=== PATIENT | female | born 1970 | race American Indian/Alaskan Native ===

== ENCOUNTER 2018-05-28 07:09 | Outpatient (CLI) | payer OTHER ==
--- NOTE | 2018-05-28 14:34 | Mammography Report ---
BILATERAL DIGITAL SCREENING MAMMOGRAM with CAD: 05/28/18 07:09:00 CLINICAL: Routine screening. COMPARISON:01/24/14 FINDINGS: The breasts are heterogeneously dense, which may obscure small masses. No mass, architectural distortion or suspicious calcifications. IMPRESSION: No mammographic evidence of malignancy. BI-RADS CATEGORY: 1 - - Negative RECOMMENDATION: Routine mammographic screening in one year. COMMENT: Patient follow-up letters are generated by our [employer] application.
== END 2018-05-28 07:10 | disposition home or self-care (01) ==
LOC: MAMMO 07:09
PROVIDERS: ATTEND Family Medicine
DX: Z12.31 Encounter for screening mammogram for malignant neoplasm of breast (principal)
CPT/HCPCS: 77067

== ENCOUNTER 2018-12-10 05:40 | Day surgery (SDC) | payer OTHER ==
--- NOTE | 2018-12-07 13:51 | History and Physical Report ---
History of Present Illness Date of examination: 12/07/18 Date of admission: 12/10/18 Chief complaint: irregular bleeding History of present illness: Visit Type: Pre-Op CC: no complaints. History of Present Illness: pt presents for pre op visit: Novasure....bakari Pt has h/o DUB and is s/p SIS in 2016. She c/o having two periods per month. I d/w pt that it is likely due to bein perimenopausal. Pt is s/p SIS and embx both of which with negative findings. I have d/w treatment options for the perimenopausal bleeding and she desires the Novasure ablation. All risk/benefits/alternatives were d/w pt and questions were addressed and answered. Conents have been signed and placed on the chart. Vital Signs: Patient Profile: 48 Years Old Female Height: 65 inches (165.10 cm) Weight: 232 pounds BMI: 38.60 BP sittin / 74 (left arm) Current Method of Contraception: BTL Date of Last Pap Smear: 10/29/2018 Past History : 3 Term Births: 3 Living Children: 3 Para: 3 MANAGER SAFE History Uterine Surgery (not C/S): negative Operations: Tubal Ligation Anesthesia Complications: negative Abnormal PAP: positive; cryo Uterine Anomaly: negative ANANDA Exposure: negative Infertility: negative Infection History HIV Risk Eval: no Personal hx. of genital herpes: no Hx of STD: None Active Medications (reviewed today): IBUPROFEN 800 MG ORAL TABLET (IBUPROFEN) 1 po q6 hr prn pain IBUPROFEN 800 MG ORAL TABLET (IBUPROFEN) 1 po q6 hr prn pain Current Allergies (reviewed today): No known allergies Past Medical History: Reviewed history from 12/17/2012 and no changes required: Negative Past Medical History pcp--dr rhianna wooten Past Surgical History: Reviewed history from 11/26/2011 and no changes required: Tubal Ligation [-[facility]] Risk Factors: Smoked Tobacco Use: Never smoker Smokeless Tobacco Use: Never Drug use: no HIV high-risk behavior: no Alcohol use: yes Exercise: yes Seatbelt use: 100 % PAP Smear History: Date of Last PAP Smear: 10/29/2018 [[facility]] [Labs In-House] Physical Exam Appearance: well developed, well nourished, no acute distress Other Exams Lungs: no rales, rhonchi, or wheezes Heart: S1, S2, no murmur, rub, or gallop Extremities: normal alignment, no joint enlargement, crepitus, masses or tenderness; normal tone and strength Genitourinary Exam Comments: deferred until EUA Past History Past Medical History: other (see hpi) Past Surgical History: other (see hpi) MANAGER SAFE History: other (see hpi) Family/Genetic History: other (see hpi) Medications and Allergies Allergies Allergy/AdvReac Type Severity Reaction Status Date / Time No Known Allergies Allergy Unverified 01/24/14 08:03 Review of Systems All systems: negative - Physical Exam Cardiovascular: Normal S1, Normal S2 Lungs: Positive: Clear to auscultation, Normal air movement Abdomen: Positive: normal appearance, soft. Negative: distention, tenderness, guarding Genitourinary (Female): Positive: other (deferred until EUA) Deep Tendon Reflex Grade: Normal +2 Results All other labs normal. Assessment and Plan - Patient Problems (1) Metrorrhagia Status: Acute Plan to address problem: -admit for Novasure ablation -all risk, benefits and alternatives were d/w pt and questions were addressed and answered
[~2018-12-10 05:40] MED LIST: ANCEF/STERILE WATER 2 GM/20 ML 2 GM/20 ML SYRINGE IV NR; LACTATED RINGERS 1,000 ML IV SCH
[2018-12-10] MEDS ORDERED: VERSED IV NR (06:00)
[2018-12-10] MEDS ORDERED: NACL BACTERIOSTATIC INFILTRATI ONE (06:24)
[2018-12-10] MEDS ORDERED: DIPRIVAN 10 MG/ML IV ONE (07:15)
[2018-12-10] MEDS ORDERED: DILAUDID ONE ×2 (07:15→08:42)
[2018-12-10] MEDS ORDERED: NACL 0.9% IR ONE (07:15)
[2018-12-10] MEDS ORDERED: XYLOCAINE MPF 2% ONE (07:16)
--- NOTE | 2018-12-10 07:41 | Anesthesia Consultation ---
Anesthesia Consult and Med Hx Date of service: 12/10/18 - Airway Anesthetic Teeth Evaluation: Good ROM Head & Neck: Adequate Mental/Hyoid Distance: Adequate Mallampati Class: Class I Intubation Access Assessment: Probably Good - Pulmonary Exam CTA: Yes - Cardiac Exam Cardiac Exam: RRR - Pre-Operative Health Status ASA Pre-Surgery Classification: ASA1 Proposed Anesthetic Plan: General - Pulmonary Hx Smoking: No Hx Respiratory Symptoms: No Hx Sleep Apnea: No - Cardiovascular System Hx Hypertension: No Hx Heart Attack/AMI: No Hx Heart Murmur: Yes ("innocent") - Central Nervous System Hx Neuromuscular Disorder: No Hx Psychiatric Problems: No - Gastrointestinal Hx Gastroesophageal Reflux Disease: No - Endocrine Hx Renal Disease: No Hx Cirrhosis: No Hx Liver Disease: No - Hematic Hx Anemia: Yes - Other Systems Hx Alcohol Use: Yes (Occas) Hx Cancer: No Hx Obesity: Yes - Additional Comments Anesthesia Medical History Comments: No GAC, No FHAC
--- NOTE | 2018-12-10 07:42 | Anesthesia Day of Surgery ---
Anesthesia Day of Surgery - Day of Surgery Patient Examined: Yes Patient H&P Reviewed: Yes Patient is NPO: Yes Beta Blockers: No (n/a) Cardiac Clearance: No (n/a) Pulmonary Clearance: No (n/a)
[2018-12-10] MEDS ORDERED: TORADOL ONE (08:07)
[2018-12-10] MEDS ORDERED: ZOFRAN ONE (08:07)
[2018-12-10 08:12] LABS: Hematocrit 32.7 % (30.3-42.9); Hemoglobin 10.1 gm/dl (10.1-14.3); Mean Corpuscular HGB Conc 31 % (30-34); Platelet Count 241 K/mm3 (140-440); Red Cell Distribution Width 17.4 % (13.2-15.2)
[2018-12-10 08:13] LABS: Mean Corpuscular Hemoglobin 21 pg (28-32); Mean Corpuscular Volume 67 fl (79-97)
--- NOTE | 2018-12-10 08:17 | Operative Report ---
Operative Report Operative Report: Date of procedure: 12/10/2018 Pre-operative diagnosis: Menorrhagia Metrarrhagia Post-operative diagnosis: Same Procedure name(s): 1. Hysteroscopy 2. NovaSure ablation Surgeon: Blossom Caban M.D. Server Developer: [email or web address] Anesthesia: Mac EBL: Minimal Urine output: 200 mL of clear urine out at the beginning of the procedure via straight catheterization Fluids: 350 mL Findings: Normal cervix Thickening of the tissue inside the endometrium Indications: Patient presents with long history of heavy menstrual periods and bleeding between menstrual periods often having 2 periods in that same month. Patient underwent endometrial biopsy that was negative for any malignancy or hyperplasia. All risks benefits and alternatives were discussed with the patient. Patient desired endometrial ablation. Consents were signed and placed on the chart. Procedure: Patient was taken to the operating room where she was placed under general endotracheal anesthesia she was then prepped and draped in normal sterile fashion in dorsal lithotomy position with legs in Alli stirrups. Straight catheterization of the bladder was performed at this time. Sterile speculum was placed inside of the vagina to visualize the entire cervix. The anterior lip of the cervix was grasped with a single-tooth tenaculum and the uterus was sounded to 8cm. The cervix was then dilated in order to allow passage of the hysteroscope. Hysteroscopy yielded the above-stated findings. The cervical length was noted to be 4 cm. The uterine cavity length was calculated to be 4 cm. The cervix was then dilated more to allow passage of the NovaSure device. With placement of the NovaSure device the cavity width was noted to be 4.5cm. The integrity of the seal was then tested. The device did pass the testing. The power that was used for the NovaSure ablation was 99. The amount of time of the ablation was 1min 45seconds. Hysteroscopy following the ablation noted that there was adequate cauterization of the uterine cavity. All instruments were removed from the vagina and the cervix. Patient tolerated the procedure well. All counts were correct.
--- NOTE | 2018-12-10 08:22 | Short Stay Summary ---
Short Stay Documentation Date of service: 12/10/18 - History H&P: dictated - Allergies and Medications Current Medications: Allergies No Known Allergies Allergy (Unverified 12/08/18 10:09) Home Medications Medication Instructions Recorded Confirmed Last Taken Type Acetaminophen/Codeine [Tylenol 1 tab PO Q6H PRN #30 tab 12/10/18 Unknown Rx /Codeine # 3 tab] Ibuprofen 800 mg PO Q6HR #30 tablet 12/10/18 Unknown Rx Active Medications Cefazolin Sodium (Ancef/Sterile Water 2 Gm/20 Ml) 2 gm in 20 mls @ 80 mls/hr IV PREOP NR; Protocol Stop: 12/10/18 23:59 Lactated Ringer's (Lactated Ringers) 1,000 mls @ 100 mls/hr IV DIRECT CELINE Last Admin: 12/10/18 06:30 Dose: 100 mls/hr Documented by: Midazolam HCl (Versed) 2 mg IV PREOP NR Stop: 12/10/18 23:59 Last Admin: 12/10/18 07:20 Dose: 2 mg Documented by: - Brief post op/procedure progress note Date of procedure: 12/10/18 Pre-op diagnosis: metrorrhagia Post-op diagnosis: same Procedure: NovaSure ablation hysteroscopy Anesthesia: MAC Findings: Normal cervix Thickness of the endometrial tissue Surgeon: BENIGNO RUSSELL Estimated blood loss: minimal Pathology: none Condition: stable - Hospital course Hospital course: Patient was made for above-stated procedure. Procedure was done without difficulty please see operative report for details. Patient will be discharged home once she had met discharge criteria in the PACU. - Disposition Condition at discharge: Good Disposition: DC-01 TO HOME OR SELFCARE - Discharge Diagnoses (1) Metrorrhagia Status: Acute Short Stay Discharge Plan Activity: no restrictions Weight Bearing Status: Weight Bear as Tolerated Diet: regular Follow up with: ARIELLA PITTS MD [Primary Care Provider] - 7 Days Prescriptions: Ibuprofen 800 mg PO Q6HR #30 tablet Acetaminophen/Codeine [Tylenol /Codeine # 3 tab] 1 tab PO Q6H PRN #30 tab PRN Reason: Pain , Severe (7-10)
[2018-12-10] MEDS ORDERED: DILAUDID IV PRN (09:08)
[2018-12-10 09:31] VITALS: BP 132/63
--- NOTE | 2018-12-10 10:34 | Post Anesthesia Evaluation ---
- Post Anesthesia Evaluation Patient Participated: Yes Airway Patent: Yes Stable Respiratory Function: Yes Nausea/Vomiting: No Temp > 96.8F: Yes Pain Manageable: Yes Adequeate Hydration: Yes Anesthesia Complications: No
== END 2018-12-10 10:00 | disposition home or self-care (01) ==
LOC: OR 05:40
PROVIDERS: ATTEND Obstetrics & Gynecology
DX: N92.0 Excessive and frequent menstruation with regular cycle (principal); G43.909 Migraine, unspecified, not intractable, without status migrainosus; K21.9 Gastro-esophageal reflux disease without esophagitis; E66.9 Obesity, unspecified; Z68.37 Body mass index [BMI] 37.0-37.9, adult; Z98.51 Tubal ligation status; Z72.89 Other problems related to lifestyle; Z79.899 Other long term (current) drug therapy; Z86.2 Personal history of diseases of the blood and blood-forming organs and certain disorders involving the immune mechanism; Z98.890 Other specified postprocedural states
CPT/HCPCS: 36415; 58563; 81025; 85027; A4217; J0690; J1170; J1885; J2250; J2405; J2704; J7120

== ENCOUNTER 2022-03-24 07:21 | Outpatient (CLI) | payer BC ==
--- NOTE | 2022-03-25 13:23 | Mammography Report ---
DIGITAL SCREENING MAMMOGRAM WITH CAD, 03/24/2022 CLINICAL INFORMATION / INDICATION: Routine screening mammography. TECHNIQUE: Digital bilateral 2D mammography was obtained in the craniocaudal and mediolateral obliqu e projections. This examination was interpreted with the benefit of Computer-Aided Detection analysis . COMPARISON: 05/28/2018 FINDINGS: Breast Density: The breasts are heterogeneously dense, which may obscure small masses. No dominant mass, suspicious calcifications, or architectural distortion in either breast. No interval change. IMPRESSION: No mammographic evidence of malignancy. Follow up recommendation: Routine yearly screening mammogram. BI-RADS Category 1: NEGATIVE A "normal" or negative report should not discourage follow up or biopsy of a clinically significant f inding. A written summary of these findings will be mailed to the patient. The patient will be entered into a mammography reporting system which will generate a reminder letter for the patient's next appointmen t at the appropriate interval. The [employer] recommends yearly mammograms starting at age 40 and continuing as l asif as a woman is in good health. Breast MRI is recommended for women with an approximate 20-25% or greater lifetime risk of breast cancer, including women with a strong family history of breast or ova jana cancer or who have been treated for Hodgkin's disease. Signer Name: Chelo Smith MD Signed: 03/25/2022 1:17 PM Workstation Name: [id number]
== END 2022-03-24 07:22 | disposition home or self-care (01) ==
LOC: MAMMO 07:21
PROVIDERS: ATTEND Obstetrics & Gynecology
DX: Z12.31 Encounter for screening mammogram for malignant neoplasm of breast (principal)
CPT/HCPCS: 77067